=== PATIENT | male | born 1965 | race Caucasian/White ===

== ENCOUNTER 2016-12-01 20:29 | Emergency (ER) | payer BC ==
[2016-12-01 20:58] VITALS: BP 143/90; PULSE 80; RESP 18; TEMP 99.1
[2016-12-01 21:19] LABS: Basophils % (A) 0 %; CH 32.7; Eosinophils # (A) 0.1 k/uL (0-0.7); Eosinophils % (A) 1 %; HCT 48.8 % (39.0-53.0); HDW 2.77; HGB 17.4 gm/dL (13.0-17.5); Luc # (Auto) 0.17; Luc % (Auto) 2; Lymphocytes # (A) 1.2 k/uL (1.0-4.8); Lymphocytes % (A) 12 %; MCH 32.4 pg (25.0-35.0); MCHC 35.6 g/dL (31.0-37.0); MCV 91.1 fL (80.0-100.0); Mean Platelet Volume 6.6; Monocytes # (A) 0.4 k/uL (0-1.0); Monocytes % (A) 4 %; Neutrophils # (A) 8.3 k/uL (1.3-7.7); Neutrophils % (A) 82 %; RBC 5.36 m/uL (4.30-5.90); RDW 13.4 % (11.5-15.5); WBC 10.1 k/uL (3.8-10.6); WBC (Perox) 10.08
[2016-12-01 21:27] LABS: INR 1.1 (<1.2); Partial Thromboplastin Time 22.9 sec (22.0-30.0); Prothrombin Time 11.1 sec (9.0-12.0)
[2016-12-01 21:28] LABS: ALT 76 U/L (21-72); AST 43 U/L (17-59); Alcohol 14 mg/dL; Alkaline Phosphatase 68 U/L (38-126); Amylase 76 U/L (30-110); Anion Gap 15 mmol/L; Blood Urea Nitrogen 22 mg/dL (9-20); Calcium 9.9 mg/dL (8.4-10.2); Carbon Dioxide 24 mmol/L (22-30); Chloride 102 mmol/L (98-107); Glucose 114 mg/dL (74-99); Non-African American GFR(MDRD) >60 (>60 ml/min/1.73 sqM); Potassium 4.2 mmol/L (3.5-5.1); Sodium 141 mmol/L (137-145); Total Protein 7.2 g/dL (6.3-8.2)
[2016-12-01 21:40] LABS: Creatine Kinase 277 U/L (55-170)
[2016-12-01 21:53] LABS: Creatine Kinase MB 1.7 ng/mL (0.0-2.4); Troponin I <0.012 ng/mL (0.000-0.034)
--- NOTE | 2016-12-01 22:14 | XR ---
EXAMINATION TYPE: XR chest 1V portable DATE OF EXAM: 12/01/2016 COMPARISON: NONE HISTORY: Pain TECHNIQUE: Single frontal view of the chest is obtained. FINDINGS: There is no fracture or pneumothorax or pleural effusion. The lungs are clear and well exp anded bilaterally. The pleural spaces are negative. The cardiomediastinal silhouette is negative. IMPRESSION: NEGATIVE EXAMINATION.
--- NOTE | 2016-12-01 22:17 | XR ---
EXAMINATION TYPE: XR pelvis AP view DATE OF EXAM: 12/01/2016 COMPARISON: NONE HISTORY: Pain after trauma TECHNIQUE: One view FINDINGS: Negative for fracture or malalignment. IMPRESSION: Negative examination.
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
[2016-12-01] MEDS ORDERED: IBUPROFEN 400 MG TAB PO STA (22:40)
[2016-12-01] MEDS ORDERED: Acetaminophen-Codeine 300-30mg TAB PO STA (22:41)
== END 2016-12-01 23:15 | disposition home or self-care (01) ==
LOC: EC 20:29
DX: H11.33 Conjunctival hemorrhage, bilateral (principal); H53.9 Unspecified visual disturbance; H57.11 Ocular pain, right eye; E78.5 Hyperlipidemia, unspecified; F17.200 Nicotine dependence, unspecified, uncomplicated; Z79.899 Other long term (current) drug therapy; W16.42XA Fall into unspecified water causing other injury, initial encounter; Y93.89 Activity, other specified; Y92.89 Other specified places as the place of occurrence of the external cause
CPT/HCPCS: 36415; 70480; 71010; 72170; 80053; 80320; 82150; 82550; 82553; 83605; 83690; 84484; 85025; 85610; 85730; 86850; 86900; 86901; 99284